=== PATIENT | female | born 1955 | race Caucasian/White ===

== ENCOUNTER 2016-03-22 12:36 | Day surgery (SDC) | payer OTHER ==
[~2016-03-22] VITALS: Ht 167.6 cm; Wt 104.3 kg
[~2016-03-22 12:36] MED LIST: ALLOPURINOL100 MG PO; AVAPRO300 MG PO; BUSPAR10 MG PO; CATAPRES0.3 MG PO; CIPRO500 MG PO; CYCLOSPORINE25 M2 PO; FLEXERIL5 MG PO; HYDRALAZINE HCL50 MG PO; IRON PO; LABETALOL HCL300 MG PO; LASIX20 MG PO; LASIX40 MG PO; LEXAPRO10 MG PO; LIPITOR40 MG PO; NEXIUM40 MG PO; PERCOCET 5/31 TABLET PO; QUINAPRIL HCL40 MG PO; REQUIP1 MG PO; ROCALTROL0.25 MCG PO; TRAMADOL HCL E100 M1 PO; VITAMIN D1000 INTUN PO; VITAMIN D31000 UNI2 PO
== END 2016-03-22 14:15 | disposition home or self-care (01) ==
LOC: PAIN 12:36 → SDC 13:00 → PAIN 14:15
PROC: 015R3ZZ Destruction of Sacral Nerve, Percutaneous Approach (ICD-10-PCS; principal; 2016-03-22)
PROC: 015B3ZZ Destruction of Lumbar Nerve, Percutaneous Approach (ICD-10-PCS; principal; 2016-03-22)
DX: M47.896 Other spondylosis, lumbar region (principal); M51.36 Other intervertebral disc degeneration, lumbar region; M43.16 Spondylolisthesis, lumbar region; F41.1 Generalized anxiety disorder; I10 Essential (primary) hypertension; G25.81 Restless legs syndrome; E11.9 Type 2 diabetes mellitus without complications; E78.5 Hyperlipidemia, unspecified; M79.1 Myalgia
CPT/HCPCS: J1030; J2250; J3010; S0020

== ENCOUNTER 2016-03-29 09:24 | Day surgery (SDC) | payer OTHER ==
[~2016-03-29] VITALS: Ht 167.6 cm; Wt 104.3 kg
[2016-03-29] MEDS ORDERED: LEXAPRO20 MG PO (23:53)
[2016-03-29] MEDS ORDERED: FEOSOL325 MG PO (23:56)
[2016-03-29] MEDS ORDERED: LABETALOL HCL100 MG PO (23:56)
[2016-03-29] MEDS ORDERED: CLARITIN,ALAVAR10 MG PO (23:57)
[2016-03-29] MEDS ORDERED: FLONASE16 G1 BOTH NARES (23:57)
[2016-03-30] MEDS ORDERED: LABETALOL HCL200 MG PO (13:57)
[2016-03-30] MEDS ORDERED: LO-DOSE ASPIRIN81 M2 PO (14:45)
== END 2016-03-29 12:05 | disposition home or self-care (01) ==
LOC: PAIN 09:24 → SDC 10:00 → PAIN 12:05
PROC: 015B3ZZ Destruction of Lumbar Nerve, Percutaneous Approach (ICD-10-PCS; principal; 2016-03-29)
PROC: 015R3ZZ Destruction of Sacral Nerve, Percutaneous Approach (ICD-10-PCS; principal; 2016-03-29)
DX: M47.896 Other spondylosis, lumbar region (principal); M51.36 Other intervertebral disc degeneration, lumbar region; M54.16 Radiculopathy, lumbar region; F41.1 Generalized anxiety disorder; K21.9 Gastro-esophageal reflux disease without esophagitis; E11.9 Type 2 diabetes mellitus without complications; I10 Essential (primary) hypertension; E78.5 Hyperlipidemia, unspecified; M79.1 Myalgia; G25.81 Restless legs syndrome
CPT/HCPCS: J1030; J2250; J3010; S0020

== ENCOUNTER 2016-03-29 20:43 | Observation (INO) | payer OTHER ==
[~2016-03-29] VITALS: Ht 167.6 cm; Wt 109.0 kg
[2016-03-29 21:03] LABS: HEMATOCRIT 36.2 % (36.0-46.0); MCH 29.7 PG (29.0-34.0); MCHC 34.3 G/DL (30.0-36.0); MCV 86.8 FL (83-99); MEAN PLAT.VOLUME 9.2 uM^3 (9.5-12.4); PLATELET COUNT 173 K/uL (156-360); RBC DIS.WIDTH-CV 13.3 % (11.8-14.6); RBC DIS.WIDTH-SD 41.1 % (39-53); RED BLOOD COUNT 4.17 M/uL (3.80-5.20); WHITE BLOOD COUNT 6.8 K/uL (4.1-10.2)
[2016-03-29 21:13] LABS: CHLORIDE 111 mEq/L (99-109); POTASSIUM 4.4 mEq/L (3.7-5.4); SODIUM 143 mEq/L (136-147)
[2016-03-29 21:15] LABS: GLUCOSE 141 mg/dL (70-99)
[2016-03-29 21:16] LABS: ANION GAP 11 MEQ/L (2-14)
[2016-03-29 21:18] LABS: GFR ESTIMATE (CALCULATED) 28 mL/min/
[2016-03-29 21:19] LABS: UREA NITROGEN (BUN) 35 mg/dL (9-23)
[2016-03-29 21:26] LABS: TROP-I INTERPRETATION NEGATIVE; TROPONIN-I < 0.01 ng/mL (0.0-0.30)
[2016-03-29] MEDS ORDERED: LEXAPRO20 MG PO (23:53)
[2016-03-29] MEDS ORDERED: FEOSOL325 MG PO (23:56)
[2016-03-29] MEDS ORDERED: LABETALOL HCL100 MG PO (23:56)
[2016-03-29] MEDS ORDERED: CLARITIN,ALAVAR10 MG PO (23:57)
[2016-03-29] MEDS ORDERED: FLONASE16 G1 BOTH NARES (23:57)
[2016-03-30] VITALS (8 sets, daily range): BP systolic 137–204; BP diastolic 72–119
[2016-03-30 04:26] LABS: TROP-I INTERPRETATION NEGATIVE; TROPONIN-I 0.01 ng/mL (0.0-0.30)
[2016-03-30 05:10] LABS: HDL CHOLESTEROL 47 MG/DL (Desirable>=50); LDL CHOLESTEROL 67 mg/dL (Desirable<100); NON-HDL CHOLESTEROL 96 mg/dL (Desirable<160); TOTAL CHOLESTEROL 143 mg/dL (Desirable<200); TRIGLYCERIDES 145 MG/DL (Normal: <150)
[2016-03-30 07:17] LABS: Estimated Average Glucose 117 mg/dL (70-123); HEMOGLOBIN A1c (GLYCOHEMOGLOB) 5.7 % HGB (Below 5.7)
[2016-03-30 10:46] LABS: TROP-I INTERPRETATION NEGATIVE; TROPONIN-I < 0.01 ng/mL (0.0-0.30)
[2016-03-30] MEDS ORDERED: LABETALOL HCL200 MG PO (13:57)
[2016-03-30] MEDS ORDERED: LO-DOSE ASPIRIN81 M2 PO (14:45)
[2016-03-30 16:23] LABS: UR CREATININE CONCENTRATION 99.8 MG/DL
== END 2016-03-30 15:54 | disposition home or self-care (01) ==
LOC: EME 20:43 → EDOF 03-30 01:25 → 5WEST 03-30 02:11
PROVIDERS: Internal Medicine; Internal Medicine Nephrology
DX: I16.1 Hypertensive emergency (principal); R07.2 Precordial pain; I13.0 Hypertensive heart and chronic kidney disease with heart failure and stage 1 through stage 4 chronic kidney disease, or unspecified chronic kidney disease; N18.3 Chronic kidney disease, stage 3 (moderate); I50.32 Chronic diastolic (congestive) heart failure; Z98.890 Other specified postprocedural states; G47.33 Obstructive sleep apnea (adult) (pediatric); E78.4 Other hyperlipidemia; G89.29 Other chronic pain; M54.9 Dorsalgia, unspecified; Z88.5 Allergy status to narcotic agent; Z82.49 Family history of ischemic heart disease and other diseases of the circulatory system; Z82.3 Family history of stroke
CPT/HCPCS: 71020; 71250; 80048; 80061; 82570; 83036; 84156; 84484; 85027; 93005; 93306; 94660; 99281; 99285; G0378; J0360; J1644; J3010; J7515

== ENCOUNTER 2016-12-24 08:44 | Day surgery (SDC) | payer OTHER ==
[~2016-12-24] VITALS: Ht 167.6 cm; Wt 110.7 kg
[~2016-12-24 08:44] MED LIST changes: +CLARITIN,ALAVAR10 MG PO; +FEOSOL325 MG PO; +FLONASE16 G1 BOTH NARES; +LABETALOL HCL100 MG PO; +LABETALOL HCL200 MG PO; +LEXAPRO20 MG PO; +LO-DOSE ASPIRIN81 M1 PO; +LO-DOSE ASPIRIN81 M2 PO; +NORMODYNE,TRAN200 MG PO
== END 2016-12-24 10:55 | disposition home or self-care (01) ==
LOC: PAIN 08:44 → SDC 09:15 → PAIN 09:15
DX: M47.26 Other spondylosis with radiculopathy, lumbar region (principal); M51.16 Intervertebral disc disorders with radiculopathy, lumbar region; M47.22 Other spondylosis with radiculopathy, cervical region; I12.9 Hypertensive chronic kidney disease with stage 1 through stage 4 chronic kidney disease, or unspecified chronic kidney disease; E11.22 Type 2 diabetes mellitus with diabetic chronic kidney disease; N18.3 Chronic kidney disease, stage 3 (moderate); E21.3 Hyperparathyroidism, unspecified; M79.1 Myalgia; K21.9 Gastro-esophageal reflux disease without esophagitis; E78.5 Hyperlipidemia, unspecified; E66.9 Obesity, unspecified; Z68.39 Body mass index [BMI] 39.0-39.9, adult; G47.30 Sleep apnea, unspecified; Z79.82 Long term (current) use of aspirin
CPT/HCPCS: J1100; J2250; J3010

== ENCOUNTER 2017-01-24 09:00 | Day surgery (SDC) | payer OTHER ==
[~2017-01-24] VITALS: Ht 167.6 cm; Wt 110.7 kg
[~2017-01-24 09:00] MED LIST changes: +CATAPRES0.1 MG PO
== END 2017-01-24 11:08 | disposition home or self-care (01) ==
LOC: PAIN 09:00 → SDC 09:15 → PAIN 09:15
DX: M47.26 Other spondylosis with radiculopathy, lumbar region (principal); M51.16 Intervertebral disc disorders with radiculopathy, lumbar region; M48.061 Spinal stenosis, lumbar region without neurogenic claudication; M43.16 Spondylolisthesis, lumbar region; M79.1 Myalgia; I13.0 Hypertensive heart and chronic kidney disease with heart failure and stage 1 through stage 4 chronic kidney disease, or unspecified chronic kidney disease; E11.22 Type 2 diabetes mellitus with diabetic chronic kidney disease; N18.3 Chronic kidney disease, stage 3 (moderate); I50.9 Heart failure, unspecified; G47.30 Sleep apnea, unspecified; F41.8 Other specified anxiety disorders; E21.3 Hyperparathyroidism, unspecified; K21.9 Gastro-esophageal reflux disease without esophagitis; Z79.82 Long term (current) use of aspirin
CPT/HCPCS: J1100; J2250; J3010